=== PATIENT | female | born 1960 | race African-American/Black ===

== ENCOUNTER 2020-06-26 11:34 | Emergency (ER) | payer BC, MEDICAID ==
[2020-06-26] MEDS ORDERED: TORAdol 30 mg Injection IM ONE (12:06)
--- NOTE | 2020-06-26 12:12 | ERPHSYRPT ---
- History of Present Illness Time Seen by Provider: 06/26/20 11:45 Source: patient Exam Limitations: no limitations Patient Subjective Stated Complaint: pt here for back and knee pain Triage Nursing Assessment: pt walked in , alert with face mask in place , skin w/d/p. pain to lower back with no injury. aslo co pain to right knee, no brusing or or truama noted Physician History: Patient is a 60-year-old female presents to our ED for evaluation of low back and right knee pain. 2 days ago patient stumbled and fell onto her right knee. Since then she has been experiencing low back and knee pain. Patient's fall was a trip and fall mechanism of injury. 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 Patient is originally from [place] as she is here for work. Low back pain is described as an ache that is localized. No radiation. Pain worse with movement and palpation. Pain improved with rest. No change in bowel bladder fu nction. No saddle anesthesia. No back procedure. No fever. Right knee pain occurs with weightbearing. Patient is ambulatory however ambulates with a mild limp. Symptoms are mild to moderate in intensity. Patient voices no other complaints at this time. Timing/Duration: other (Pain started 2 days ago.) Method of Injury: fall Quality: dull Back Pain Location: lumbar spine (Pain also at right anterior knee.) Severity of Pain-Max: moderate Severity of Pain-Current: mild Modifying Factors: Improves With: movement Associated Symptoms: No fever, No urinary incontinence, No loss of bowel contro l, No weakness, No muscle spasms Previous symptoms: no prior history Allergies/Adverse Reactions: morphine Allergy (Mild, Verified 06/26/20 11:51) Home Medications: Hum Insulin NPH/Reg Insulin Hm [Novolin 70-30 100 Unit/ml Vial] 25 unit SQ BID 06/12/12 [History] Hydrochlorothiazide 25 mg PO DAILY 06/12/12 [History] Pravastatin Sodium 20 mg PO DAILY 06/12/12 [History] Hx Tetanus, Diphtheria Vaccination/Date Given: No (UNSURE) Hx Influenza Vaccination/Date Given: Yes Hx Pneumococcal Vaccination/Date Given: Yes Immunizations Up to Date: Yes Travel Risk - International Travel Have you traveled outside of the country in past 3 weeks: No - Coronavirus Screening Are you exhibiting any of the following symptoms?: No Close contact with a COVID-19 positive Pt in past 14-21 Days: No - Review of Systems Constitutional: No Symptoms, No Fever, No Chills Eyes: No Symptoms Ears, Nose, & Throat: No Symptoms Respiratory: No Symptoms, No Cough, No Dyspnea Cardiac: No Symptoms, No Chest Pain, No Edema, No Syncope Abdominal/Gastrointestinal: No Symptoms, No Abdominal Pain, No Nausea, No Vomiting, No Diarrhea Genitourinary Symptoms: No Symptoms, No Dysuria Musculoskeletal: No Symptoms, No Back Pain, No Neck Pain Skin: No Symptoms, No Rash Neurological: No Symptoms, No Dizziness, No Focal Weakness, No Sensory Changes Psychological: No Symptoms Endocrine: No Symptoms Hematologic/Lymphatic: No Symptoms Immunological/Allergic: No Symptoms All Other Systems: Reviewed and Negative - Past Medical History Pertinent Past Medical History: Yes Neurological History: No Pertinent History ENT History: No Pertinent History Cardiac History: High Cholesterol, Hypertension Respiratory History: No Pertinent History Endocrine Medical History: No Pertinent History Musculoskeletal History: No Pertinent History GI Medical History: No Pertinent History History: No Pertinent History Psycho-Social History: No Pertinent History Female Reproductive Disorders: No Pertinent History - Past Surgical History Past Surgical History: Yes Neuro Surgical History: No Pertinent History Cardiac: No Pertinent History Respiratory: No Pertinent History Gastrointestinal: Hernia Repair Genitourinary: No Pertinent History Musculoskeletal: No Pertinent History Female Surgical History: Section, Hysterectomy - Social History Smoking Status: Never smoker Exposure to second hand smoke: No Drug Use: none Patient Lives Alone: No - Female History Hx Last Menstrual Period: post Hx Now: No - Nursing Vital Signs Nursing Vital Signs: Initial Vital Signs Temperature 98.1 F 06/26/20 11:41 Pulse Rate 85 06/26/20 11:41 Respiratory Rate 18 06/26/20 11:41 Blood Pressure 152/82 06/26/20 11:41 O2 Sat by Pulse Oximetry 95 06/26/20 11:41 Pain Scale Pain Intensity 4 - Physical Exam General Appearance: no apparent distress, alert Eye Exam: PERRL/EOMI, eyes nml inspection Neck Exam: normal inspection, non-tender, supple, full range of motion, No meningismus, No midline tenderness Respiratory Exam: normal breath sounds, lungs clear, No respiratory distress Cardiovascular Exam: regular rate/rhythm, normal heart sounds Gastrointestinal Exam: soft, No tenderness, No mass Extremity Exam: normal inspection, normal range of motion, No calf tenderness, No limited range of motion (No obvious injury to right knee. Range of motion within normal limits. Pain upon weightbearing. Minimal discomfort at rest. Involved extremity is neurovascularly intact distally.), No pedal edema Peripheral Pulses: dorsalis-pedis (R): 2+, dorsalis-pedis (L): 2+ Neurologic Exam: alert, oriented x 3, cooperative, fuel injection servicer II-XII nml as tested, normal mood/affect, nml station & gait, sensation nml, No motor deficits Skin Exam: normal color, warm, dry, No rash Lymphatic Exam: No adenopathy SpO2 Interpretation: normal SpO2: 95 O2 Delivery: Room Air - Course Nursing assessment & vital signs reviewed: Yes - Radiology Exams Knee X-ray Interpretation: Teleradiologist Report (Minimal medial joint space narrowing, mild tricompartmental spurring and mild tibial tuberosity spurring.) L-Spine X-ray Interpretation: Teleradiologist Report (Minimal multilevel degenerative spondylolysis moderate bilateral L4-S1 degenerative facet hypertrophy and old right 11/12 rib fractures.) Ordered Tests: Active Orders 24 hr Category Date Time Status KNEE (1 OR 2 VIEW) Stat Exams 06/26/20 12:05 Completed LUMBAR LIMITED (2 OR 3 VIEWS) Stat Exams 06/26/20 12:06 Completed UA W/RFX UR CULTURE Stat Lab 06/26/20 12:22 Ordered Medication Summary Discontinued Medications Generic Name Dose Route Start Last Admin Trade Name Freq PRN Reason Stop Dose Admin Ketorolac Tromethamine 60 mg 06/26/20 12:06 06/26/20 12:50 Toradol 30 Mg Injection IM 06/26/20 12:07 60 mg STAT ONE Administration Ketorolac Tromethamine Confirm 06/26/20 12:48 Toradol 30 Mg Injection Administered 06/26/20 12:49 Dose 60 mg .ROUTE .STK-MED ONE - Progress Progress: improved Progress Note: 06/26/20 13:30 Patient reassessed. Pain improved. Patient will take [id number] pain medications as necessary for pain. Patient given a referral to [facility] per patient's request. Counseled pt/family regarding: diagnosis, need for follow-up, rad results - Departure Departure Disposition: Home Clinical Impression: Arthritis of knee, Arthritis, lumbar spine, Lumbosacral strain Condition: Stable Critical Care Time: No Referrals: SHAE LESTER [Primary Care Provider] - NOLBERTO SIMON [NON-STAFF PHY W/O PRIVILEGES] - Additional Instructions: OTC pain/analgesics PRN for pain Discharge/Care Plan GALLO JACOBSON was seen on 06/26/20 in the Emergency Room. The patient was counseled regarding Diagnosis,Lab results, Imaging studies, need for follow up and when to return to the Emergency Room. Prescriptions given: Discharge Note I have spoken with the patient and/or caregivers. I have explained the patient's condition, diagnosis and treatment plan based on the information available to me at this time. I have answered the patient's and/or caregiver's questions and addressed any concerns. The patient and/or caregivers have as good understanding of the patient's diagnosis, condition and treatment plan as can be expected at this point. The vital signs have been stable. The patient's condition is stable and appropriate for discharge from the emergency department. The patient will pursue further outpatient evaluation with the primary care physician or other designated or consulting physician as outlined in the discharge instructions. The patient and/or caregivers are agreeable to this plan of care and follow-up instructions have been explained in detail. The patient and/or caregivers have received these instruction. The patient/and or caregivers are aware that any significant change in condition or worsening of symptoms should prompt an immediate return to this or the closest emergency department or call 911.
[2020-06-26] MEDS ORDERED: TORAdol 30 mg Injection ONE (12:48)
[2020-06-26 12:53] VITALS: BP 132/68; PULSE 87
--- NOTE | 2020-06-26 12:58 | XRAY ---
Indication: Pain following fall 2 days ago. Comparison: None 3 view lumbar spine demonstrates 5 lumbar vertebral segments in normal alignment with minimal/mild multilevel degenerative spondylosis, moderate bilateral L4-S1 degenerative facet hypertrophy, and old right 11/12 rib fractures. No other bony, articular, or soft tissue abnormalities.
--- NOTE | 2020-06-26 13:01 | XRAY ---
Indication: Pain following fall 2 days ago. Comparison: July 22 and 2010. AP/lateral right knee again demonstrates minimal medial joint space narrowing, minimal/mild tricompartmental spurring, and mild tibial tuberosity spurring. No new/acute bony, articular, or soft tissue abnormalities.
[2020-06-26 13:03] LABS: Appearance SLIGHTLY CLOUDY (CLEAR); Leukocyte Esterase NEGATIVE (NEGATIVE); Nitrite NEGATIVE (NEGATIVE); Protein,Urine Dip 30 (Negative); Specific Gravity 1.021 (1.005-1.025)
[2020-06-26 13:04] LABS: Bacteria RARE /HPF (NEGATIVE); Bilirubin NEGATIVE (NEGATIVE); Blood SMALL Ery/ul (0-5); Epithelial Cells RARE /HPF (FEW); Glucose >=500 mg/dL (NEGATIVE); Ketones NEGATIVE (NEGATIVE); Mucus SLIGHT /HPF (NEGATIVE); Urobilinogen NEGATIVE mg/dL (0-1); WBC 0-2 /HPF (0-5)
[2020-06-26 13:31] VITALS: O2SAT 95
== END 2020-06-26 13:43 | disposition home or self-care (01) ==
LOC: ED 11:34
DX: M17.10 Unilateral primary osteoarthritis, unspecified knee (principal); M47.816 Spondylosis without myelopathy or radiculopathy, lumbar region; S39.012A Strain of muscle, fascia and tendon of lower back, initial encounter; M25.569 Pain in unspecified knee
CPT/HCPCS: 72100; 73560; 81001; 96372; 99284; J1885